=== PATIENT | female | born 1960 | race Caucasian/White ===

== ENCOUNTER → 2021-08-03 | Outpatient (CLI) | payer OTHER | LOC: MC.RAD 14:12 | DX: Z12.31 Encounter for screening mammogram for malignant neoplasm of breast (principal) ==

== ENCOUNTER → 2021-08-15 | Outpatient (CLI) | payer OTHER | LOC: MC.RAD 12:49 | DX: N63.20 Unspecified lump in the left breast, unspecified quadrant (principal) ==

== ENCOUNTER → 2021-08-30 | Outpatient (CLI) | payer OTHER | LOC: MC.RAD 09:49 | DX: N63.20 Unspecified lump in the left breast, unspecified quadrant (principal) | CPT/HCPCS: A4648 ==

== ENCOUNTER → 2023-11-27 | Outpatient (CLI) | payer OTHER ==
[~2023-11-27] MED LIST: ASPIRIN 81M81 MG/TA2 PO; GLUCOSAMINE/CHO1 CA5 PO; OMEGA-3 1000 MG1 CAP PO; TOPROL XL 50MG50 MG PO; TYLENOL 500MG500 MG PO
== END ==
LOC: MC.RAD 10:37
DX: Z12.31 Encounter for screening mammogram for malignant neoplasm of breast (principal)